=== PATIENT | female | born 1985 | race Caucasian/White ===

== ENCOUNTER 2017-08-01 17:26 | Emergency (ER) | payer SELFPAY ==
[~2017-08-01] VITALS: Ht 160 cm; Wt 77.1 kg
[2017-08-01 18:00] VITALS: BP 139/81
[2017-08-01] MEDS ORDERED: KETOROLAC 30 MG/ML INJ. IV ONE (19:00)
--- NOTE | 2017-08-01 19:43 | PHYS DOC ---
Past Medical History Past Medical History: No Pertinent History Past Surgical History: No Surgical History Alcohol Use: Occasionally Drug Use: None Adult General Chief Complaint Chief Complaint: ABDOMINAL PAIN HPI HPI Patient is a 31 year old F who presents with right flank pain for the past couple days. Patient states today she's having dysuria and increased burning with urination. Patient complains of right lower back pain. Patient denies any fevers. Patient denies any nausea/vomiting/diarrhea. Patient has no other complaints. Review of Systems Review of Systems GEN: Denies fevers, chills, sweats HEENT: Denies blurred vision, sore throat CV: Denies chest pain RESP: Denies shortness of air, cough GI: Right flank pain NEURO: Denies confusion, dizziness MSK: Denies weakness, joint pain/swelling Current Medications Current Medications Current Medications Medications (Trade) Dose Ordered Sig/Parminder Start Time Stop Time Status Last Admin Dose Admin Ceftriaxone Sodium 50 ml @ 100 mls/hr 1X ONCE 08/01/17 21:15 08/01/17 21:44 UNV Info (Do NOT chart on this entry -- for MONITORING) 1 each PRN DAILY PRN 08/01/17 19:45 08/03/17 19:44 Iohexol (Omnipaque 300 Mg/ml) 75 ml 1X ONCE 08/01/17 19:45 08/01/17 19:46 DC 08/01/17 20:30 75 ML Ketorolac Tromethamine (Toradol) 30 mg 1X ONCE 08/01/17 19:00 08/01/17 19:33 DC 08/01/17 20:45 30 MG Allergies Allergies Allergies Coded Allergies Type Severity Reaction Last Updated Verified No Known Drug Allergies 08/01/17 No Physical Exam Physical Exam GEN.: No apparent distress. Alert and oriented. HEENT: Head is normocephalic, atraumatic NECK: Supple. LUNGS: CTAB. HEART: RRR, S1, S2 present. Peripheral pulses intact ABDOMEN: Soft, right CVA tenderness. Positive bowel sounds. EXTREMITIES: Without any cyanosis. NEUROLOGIC: Normal speech, normal tone PSYCHIATRIC: Normal affect, normal mood. SKIN: No ulcerations Current Patient Data Vital Signs Vital Signs Date Time Temp Pulse Resp B/P (MAP) Pulse Ox O2 Delivery O2 Flow Rate FiO2 08/01/17 18:00 97.6 84 23 99 Room Air 97.6 Lab Values Laboratory Tests Test 08/01/17 18:22 08/01/17 19:00 08/01/17 19:22 POC Urine HCG, Qualitative Hcg negative (Negative) Urine Collection Type Void Urine Color Yellow Urine Clarity Cloudy Urine pH 7.0 Urine Specific [place] 1.010 Urine Protein 30 mg/dL (NEG-TRACE) Urine Glucose (UA) Negative mg/dL (NEG) Urine Ketones (Stick) Negative mg/dL (NEG) Urine Blood Large (NEG) Urine Nitrite Negative (NEG) Urine Bilirubin Negative (NEG) Urine Urobilinogen Dipstick 0.2 mg/dL (0.2 mg/dL) Urine Leukocyte Esterase Large (NEG) Urine RBC 3-5 /HPF (0-2) Urine WBC Tntc /HPF (0-4) Urine Squamous Epithelial Cells Mod /LPF Urine Bacteria Moderate /HPF (0-FEW) Urine Mucus Marked /LPF Urine Opiates Screen Neg (NEG) Urine Methadone Screen Neg (NEG) Urine Barbiturates Neg (NEG) Urine Phencyclidine Screen Neg (NEG) Urine Amphetamine/Methamphetamine Pos (NEG) Urine Benzodiazepines Screen Neg (NEG) Urine Cocaine Screen Neg (NEG) Urine Cannabinoids Screen Neg (NEG) Urine Ethyl Alcohol Neg (NEG) White Blood Count 13.3 x10^3/uL (4.0-11.0) H Red Blood Count 4.56 x10^6/uL (3.50-5.40) Hemoglobin 13.3 g/dL (12.0-15.5) Hematocrit 41.3 % (36.0-47.0) Mean Corpuscular Volume 91 fL (79-100) Mean Corpuscular Hemoglobin 29 pg (25-35) Mean Corpuscular Hemoglobin Concent 32 g/dL (31-37) Red Cell Distribution Width 13.6 % (11.5-14.5) Platelet Count 302 x10^3/uL (140-400) Neutrophils (%) (Auto) 71 % (31-73) Lymphocytes (%) (Auto) 20 % (24-48) L Monocytes (%) (Auto) 8 % (0-9) Eosinophils (%) (Auto) 1 % (0-3) Basophils (%) (Auto) 1 % (0-3) Neutrophils # (Auto) 9.5 x10^3uL (1.8-7.7) H Lymphocytes # (Auto) 2.6 x10^3/uL (1.0-4.8) Monocytes # (Auto) 1.0 x10^3/uL (0.0-1.1) Eosinophils # (Auto) 0.2 x10^3/uL (0.0-0.7) Basophils # (Auto) 0.1 x10^3/uL (0.0-0.2) Sodium Level 140 mmol/L (136-145) Potassium Level 3.8 mmol/L (3.5-5.1) Chloride Level 101 mmol/L (98-107) Carbon Dioxide Level 31 mmol/L (21-32) Anion Gap 8 (6-14) Blood Urea Nitrogen 9 mg/dL (7-20) Creatinine 0.9 mg/dL (0.6-1.0) Estimated GFR (Cockcroft-Gault) 73.5 BUN/Creatinine Ratio 10 (6-20) Glucose Level 104 mg/dL (70-99) H Calcium Level 9.2 mg/dL (8.5-10.1) Total Bilirubin 0.5 mg/dL (0.2-1.0) Aspartate Amino Transferase (AST) 19 U/L (15-37) Alanine Aminotransferase (ALT) 35 U/L (14-59) Alkaline Phosphatase 81 U/L (46-116) Total Protein 7.8 g/dL (6.4-8.2) Albumin 4.1 g/dL (3.4-5.0) Albumin/Globulin Ratio 1.1 (1.0-1.7) Lipase 113 U/L (73-393) Ethyl Alcohol Level < 10 mg/dL (0-10) Laboratory Tests 08/01/17 19:22 Laboratory Tests 08/01/17 19:22 EKG EKG [] Radiology/Procedures Radiology/Procedures IMPRESSION: 1. Increased density is seen within the fat medial to the right kidney extending inferiorly and surrounding the right ureter to some degree. These findings could reflect recently relieved obstruction of the right collecting system or possibly could be seen with pyelonephritis. Clinical relation is recommended. 2. 2.5 cm probable right ovarian cyst.[] Course & Med Decision Making Course & Med Decision Making Pertinent Labs and Imaging studies reviewed. (See chart for details) Patient was seen and examined emergency room abdominal workup was ordered along with a CT scan abdomen pelvis 2117: Patient was reevaluated in which she states her pain has resolved as resting comfortably in the bed. Patient was updated on the lab work and CT findings. Patient does admit to using meth. MDM: After reviewing the chart, CC/HPI/PMH, physical exam, [lab results], [ radiological results], I do not believe the patient has significant bacterial infection warranting further workup and/or admission at this time. I believe the patient has a UTI with pallor nephritis and is stable to be discharged home with oral Anaprox. He was recommended the patient stop using meth. Additional verbal discharge instructions were provided to the patient and that if symptoms get worse or any new symptoms arise that are worrisome to the patient she is to return to the emergency room immediately [] Dragon Disclaimer Dragon Disclaimer This electronic medical record was generated, in whole or in part, using a voice recognition dictation system. Departure Departure Impression: Primary Impression: UTI (urinary tract infection) Additional Impression: Pyelonephritis Disposition: 01 HOME, SELF-CARE Condition: STABLE Referrals: NO PCP (PCP) Patient Instructions: Pyelonephritis, Adult, [id number], Urinary Tract Infection, [id number] Additional Instructions: Please follow up with your family doctor in 1-2 days and return if symptoms increase Scripts Levofloxacin (LEVAQUIN) 750 Mg Tablet 1 TAB PO DAILY, #7 TAB Prov: DMITRI FERNANDEZ DO 08/01/17 Problem Qualifiers DMITRI FERNANDEZ DO Aug 01, 2017 19:43
[2017-08-01] MEDS ORDERED: IOHEXOL 300 MG/ML 75 ML VIAL IV ONE (19:45)
[2017-08-01] MEDS ORDERED: CONTRAST GIVEN MC PRN (19:45)
[2017-08-01 20:01] LABS: BASO # 0.1 x10^3/uL (0.0-0.2); BASO % 1 % (0-3); EOS % 1 % (0-3); HEMATOCRIT 41.3 % (36.0-47.0); HEMOGLOBIN 13.3 g/dL (12.0-15.5); LYMPH # 2.6 x10^3/uL (1.0-4.8); LYMPH % 20 % (24-48); MEAN CORPUSCULAR HEMOGLOBIN 29 pg (25-35); MEAN CORPUSCULAR HGB CONC 32 g/dL (31-37); MEAN CORPUSCULAR VOLUME 91 fL (79-100); MONO % 8 % (0-9); NEUT % 71 % (31-73); PLATELET COUNT 302 x10^3/uL (140-400); RED BLOOD COUNT 4.56 x10^6/uL (3.50-5.40); RED CELL DISTRIBUTION WIDTH 13.6 % (11.5-14.5); WHITE BLOOD COUNT 13.3 x10^3/uL (4.0-11.0)
[2017-08-01 20:03] LABS: BILIRUBIN,URINE NEGATIVE (NEG); GLUCOSE,URINE NEGATIVE (NEG); NITRITE,URINE NEGATIVE (NEG); PROTEIN,URINE 30 mg/dL (NEG-TRACE); UROBILINOGEN,URINE 0.2 mg/dL (0.2 mg/dL)
[2017-08-01 20:10] LABS: CALCIUM 9.2 mg/dL (8.5-10.1); CREATININE 0.9 mg/dL (0.6-1.0); GFR 73.5; POTASSIUM 3.8 mmol/L (3.5-5.1)
[2017-08-01 20:16] LABS: ALBUMIN 4.1 g/dL (3.4-5.0); ALBUMIN/GLOBULIN RATIO 1.1 (1.0-1.7); TOTAL BILIRUBIN 0.5 mg/dL (0.2-1.0); TOTAL PROTEIN 7.8 g/dL (6.4-8.2)
[2017-08-01 20:29] LABS: BACTERIA,URINE MODERATE /HPF (0-FEW); SQUAMOUS EPITHELIAL CELL,UR MOD /LPF; WBC,URINE TNTC /HPF (0-4)
[2017-08-01 20:53] LABS: BARBITURATES NEG (NEG); BENZODIAZEPINES NEG (NEG); CANNABINOIDS NEG (NEG); COCAINE NEG (NEG); METHADONE NEG (NEG); OPIATES NEG (NEG); PHENCYCLIDINE NEG (NEG)
--- NOTE | 2017-08-01 21:04 | RAD ---
CT scan of the abdomen and pelvis with contrast 08/01/2017 CLINICAL HISTORY: Right flank pain. An: After the intravenous administration of 75 cc of Omnipaque 300, contiguous, 5 mm axial sections were obtained through the abdomen and pelvis. One or more of the following individualized dose reduction techniques were utilized for this study: 1. Automated exposure control. 2. Adjustment of the mA and/or kV according to patient size. 3. Use of iterative reconstruction technique. FINDINGS: Images through the lung bases demonstrate minimal dependent subsegmental atelectasis bilaterally. The liver, spleen, pancreas, adrenal glands and left kidney are within normal limits. Increased density is seen within the fat medial to the right kidney extending slightly inferiorly. Increased density surrounds the right ureter. No ureteral calculus is seen. These findings are nonspecific and could reflect a recently relieved obstruction of the right collecting system or possibly could be seen with pyelonephritis. Clinical correlation and recommended. No abnormal fluid collection is seen to suggest evidence of an abscess. The abdominal aorta tapers normally. Air and stool is seen throughout the colon. There is no evidence of bowel obstruction. The gallbladder slightly contracted. The appendix is not visualized. No inflammatory changes are seen medial to the cecum. Images through the pelvis demonstrate the urinary bladder distended with urine. A 2.5 cm rounded low-attenuation structure is seen right adnexa which likely represents a right ovarian cyst. No free fluid is seen. Very mild S-shaped curvature of the thoracolumbar spine is noted. IMPRESSION: 1. Increased density is seen within the fat medial to the right kidney extending inferiorly and surrounding the right ureter to some degree. These findings could reflect recently relieved obstruction of the right collecting system or possibly could be seen with pyelonephritis. Clinical relation is recommended. 2. 2.5 cm probable right ovarian cyst. Electronically signed by: Jaspreet Conroy MD (08/01/2017 9:02 PM) [facility]
[2017-08-01] MEDS ORDERED: LEVO750T31 PO (21:23)
== END 2017-08-01 21:30 | disposition home or self-care (01) ==
LOC: EDBD 17:26 → ER 17:26
DX: N39.0 Urinary tract infection, site not specified (principal); N12 Tubulo-interstitial nephritis, not specified as acute or chronic
CPT/HCPCS: 36415; 74177; 80053; 80307; 81001; 81025; 83690; 85025; 87086; 87186; 96365; 96375; 99285; G0480; J0690; J1885; Q9967; G0479

== ENCOUNTER 2018-06-04 20:37 | Observation (INO) | payer SELFPAY ==
[2018-06-04] MEDS ORDERED: IV RINGERS,LACTATED 1000ML 1,000 ML IV (20:45)
[2018-06-04 21:09] LABS: BILIRUBIN,URINE NEGATIVE (NEG); CLARITY,URINE CLEAR; COLOR,URINE AMBER; GLUCOSE,URINE NEGATIVE (NEG); NITRITE,URINE NEGATIVE (NEG); PROTEIN,URINE NEGATIVE (NEG-TRACE)
[2018-06-04 21:15] LABS: BACTERIA,URINE MANY /HPF (0-FEW); RBC,URINE 0 /HPF (0-2); SQUAMOUS EPITHELIAL CELL,UR MANY /LPF
[2018-06-04 21:16] LABS: AMPHETAMINE/METHAMPHETAMINE NEG (NEG); BARBITURATES NEG (NEG); BENZODIAZEPINES NEG (NEG); CANNABINOIDS NEG (NEG); COCAINE NEG (NEG); ETHANOL, URINE NEG (NEG); METHADONE NEG (NEG); OPIATES NEG (NEG); PHENCYCLIDINE NEG (NEG)
== END 2018-06-04 22:20 | disposition home or self-care (01) ==
LOC: 3 SO LND 20:37
DX: O26.893 Other specified pregnancy related conditions, third trimester (principal); M25.473 Effusion, unspecified ankle; Z3A.30 30 weeks gestation of pregnancy
CPT/HCPCS: 80307; 81001; 87086; G0378; G0379